=== PATIENT | female | born 1990 | race Hispanic/Latino ===

== ENCOUNTER 2017-05-16 20:32 | Emergency (ER) | payer OTHER ==
[~2017-05-16 20:32] MED LIST: ACET-2247 PO; PREN1TAB26 PO; PREN1TAB80 PO
[2017-05-16] MEDS ORDERED: ONDANSETRON HCL MDV 20ML 2 MG/ML VIAL ONE (21:01)
[2017-05-16] MEDS ORDERED: SODIUM CHLORIDE 0.9% 1000ML 1,000 ML IV ONE (21:02)
[2017-05-16] MEDS ORDERED: KETOROLAC TROMETHAMINE 30MG/ML ONE (21:02)
[2017-05-16 21:04] LABS: BASOPHILS % (AUTO) 0.6 % (0.0-5.0); EOSINOPHILS % (AUTO) 1.2 % (0.0-8.0); HEMATOCRIT 39.9 % (36-48); LYMPHOCYTES % (AUTO) 26.6 % (21.0-51.0); MEAN CORPUSCULAR HEMOGLOBIN 28.4 pg (27.0-33.0); MEAN CORPUSCULAR HGB CONC 33.6 g/dL (32.0-36.0); MEAN CORPUSCULAR VOLUME 84.6 fL (79-99); MONOCYTES % (AUTO) 5.7 % (3.0-13.0); NEUTROPHILS % (AUTO) 65.9 % (40.0-77.0); PLATELET COUNT (AUTO) 324 K/uL (130-400); RED BLOOD CELL COUNT(AUTO) 4.71 MIL/uL (4.00-5.50); RED CELL DISTRIBUTION WIDTH 14.1 % (11.0-15.5); WHITE BLOOD COUNT (AUTO) 9.9 K/uL (4.8-10.8)
[2017-05-16 21:14] LABS: CREATININE 0.9 mg/dL (0.5-1.5); POTASSIUM 3.9 mmol/L (3.5-5.1)
[2017-05-16 21:18] LABS: ALBUMIN 3.5 g/dL (3.5-5.0); BILIRUBIN,TOTAL 0.3 mg/dL (0.2-1.0); TOTAL PROTEIN, SERUM 7.7 g/dL (6.0-8.3)
[2017-05-16 21:53] LABS: APPEARANCE,URINE Clear (CLEAR); BILIRUBIN,URINE Negative (NEGATIVE); COLOR,URINE Yellow (YELLOW); GLUCOSE, URINE (UA) Negative (NEGATIVE); KETONES,URINE Negative (NEGATIVE); LEUKOCYTE ESTERASE ,URINE Trace (NEGATIVE); NITRATE,URINE Negative (NEGATIVE); OCCULT BLOOD,URINE Large (NEGATIVE); PH,URINE 7.5 (5.0-8.0); PROTEIN,URINE Negative (NEGATIVE); UROBILINOGEN,URINE 0.2 mg/dL (0.2-1.0)
[2017-05-16 21:59] LABS: HCG,QUAL RESULT NEGATIVE (NEGATIVE)
[2017-05-16 22:04] LABS: RBC,URINE 0-1 /HPF (0-1)
[2017-05-16 22:06] LABS: BACTERIA,URINE Few /HPF (None Seen); SQUAMOUS EPITHELIAL CELL,UR Rare /HPF (0-2); YEAST,URINE BUDDING Rare /HPF (None Seen)
[2017-05-16] MEDS ORDERED: MORPHINE SULFATE 4 MG/1ML SYG ONE (23:11)
== END 2017-05-17 00:06 | disposition home or self-care (01) ==
LOC: EDH 20:32
DX: N20.0 Calculus of kidney (principal)
CPT/HCPCS: 36415; 71045; 74176; 80053; 81001; 81025; 84484; 85025; 93005; 96361; 96374; 96375; 99285; J1885; J2270; J7030

== ENCOUNTER 2017-08-11 13:25 | Emergency (ER) | payer OTHER | END 2017-08-11 13:31 | disposition home or self-care (01) | LOC: EDH 13:25 | DX: O92.79 Other disorders of lactation (principal) | CPT/HCPCS: 99281 ==

== ENCOUNTER 2018-07-03 11:22 | Emergency (ER) | payer OTHER | END 2018-07-03 14:30 | disposition home or self-care (01) | LOC: EDH 11:22 | DX: S13.4XXA Sprain of ligaments of cervical spine, initial encounter (principal); M25.512 Pain in left shoulder; R07.89 Other chest pain; Z87.442 Personal history of urinary calculi; Z72.0 Tobacco use; V59.09XA Driver of pick-up truck or van injured in collision with other motor vehicles in nontraffic accident, initial encounter; Y93.89 Activity, other specified; Y92.89 Other specified places as the place of occurrence of the external cause; Y99.8 Other external cause status | CPT/HCPCS: 70450; 71045; 72125; 73030 ==

== ENCOUNTER 2018-12-11 01:16 | Inpatient (IN) | payer OTHER ==
[~2018-12-11] VITALS: Ht 157.5 cm; Wt 97.1 kg
[2018-12-11] MEDS ORDERED: ONDANSETRON HCL 4 MG/2 ML VIAL ONE ×2 (02:00→08:23)
[2018-12-11 02:01] LABS: BASOPHILS % (AUTO) 0.3 % (0.0-5.0); EOSINOPHILS % (AUTO) 0.6 % (0.0-8.0); HEMATOCRIT 37.1 % (36-48); LYMPHOCYTES % (AUTO) 12.3 % (21.0-51.0); MEAN CORPUSCULAR HEMOGLOBIN 29.2 pg (27.0-33.0); MEAN CORPUSCULAR HGB CONC 33.6 g/dL (32.0-36.0); MEAN CORPUSCULAR VOLUME 86.9 fL (79-99); MONOCYTES % (AUTO) 6.8 % (3.0-13.0); NUCLEATED RED BLOOD CELLS 0.1 % (0.0-0.19); PLATELET COUNT (AUTO) 254 K/uL (130-400); RED BLOOD CELL COUNT(AUTO) 4.26 MIL/uL (4.00-5.50); RED CELL DISTRIBUTION WIDTH 13.7 % (11.0-15.5); WHITE BLOOD COUNT (AUTO) 13.3 K/uL (4.8-10.8)
[2018-12-11] MEDS ORDERED: HYDROMORPHONE 1 MG/1 ML AMP ONE (02:01)
[2018-12-11] MEDS ORDERED: SODIUM CHLORIDE 0.9% 1000ML 1,000 ML IV ONE ×2 (02:02→05:37)
[2018-12-11 02:03] LABS: APPEARANCE,URINE Clear (CLEAR); BILIRUBIN,URINE Negative (NEGATIVE); COLOR,URINE Yellow (YELLOW); GLUCOSE, URINE (UA) Negative (NEGATIVE); KETONES,URINE Trace mg/dL (NEGATIVE); LEUKOCYTE ESTERASE ,URINE Negative (NEGATIVE); NITRATE,URINE Negative (NEGATIVE); OCCULT BLOOD,URINE Moderate (NEGATIVE); PROTEIN,URINE Negative (NEGATIVE)
[2018-12-11 02:05] LABS: HCG,QUAL RESULT NEGATIVE (NEGATIVE)
[2018-12-11 02:07] LABS: CREATININE 1.6 mg/dL (0.5-1.5); POTASSIUM 3.8 mmol/L (3.5-5.1)
[2018-12-11 02:09] LABS: INR 0.93 (0.85-1.15); PARTIAL THROMBOPLASTIN TIME 24.8 SEC (26.3-35.5); PROTHROMBIN TIME 9.8 SEC (9.6-11.6)
[2018-12-11 02:12] LABS: ALBUMIN 3.4 g/dL (3.5-5.0); BILIRUBIN,TOTAL 0.4 mg/dL (0.2-1.0); TOTAL PROTEIN, SERUM 7.5 g/dL (6.0-8.3)
[2018-12-11 02:18] LABS: BACTERIA,URINE None Seen /HPF (None Seen); SQUAMOUS EPITHELIAL CELL,UR Moderate /HPF (0-2); WBC,URINE 0-1 /HPF (0-1)
[2018-12-11] MEDS ORDERED: KETOROLAC TROMETHAMINE 30MG/ML ONE (02:51)
[2018-12-11] MEDS ORDERED: TAMSULOSIN HCL 0.4 MG CAP.ER.24H ONE (04:15)
[2018-12-11] MEDS ORDERED: CEFTRIAXONE SODIUM 1 GM ONE (04:15)
[2018-12-11] MEDS: SODIUM CHLORIDE 0.9% 1000ML 1,000 ML IV SCH ×3 (05:09→21:09)
[2018-12-11] MEDS ORDERED: ONDANSETRON HCL 4 MG/2 ML VIAL IV PRN (05:15)
[2018-12-11] MEDS ORDERED: LACTULOSE 20 GM/30 ML UDCUP PO PRN (05:15)
[2018-12-11] MEDS ORDERED: ACETAMINOPHEN 325 MG TAB PO PRN (05:15)
[2018-12-11] MEDS ORDERED: ENOXAPARIN SODIUM 40 MG/0.4 ML SYRINGE SQ ONE (08:04)
[2018-12-11] MEDS ORDERED: FAMOTIDINE/PF 20 MG/2 ML VIAL IV ONE (08:04)
[2018-12-11] MEDS ORDERED: MORPHINE SULFATE 2 MG/ML 1ML SYG ONE (08:23)
[2018-12-11] MEDS: ENOXAPARIN SODIUM 40 MG/0.4 ML SYRINGE SQ SCH (08:57)
[2018-12-11] MEDS ORDERED: FAMOTIDINE/PF 20 MG/2 ML VIAL IV SCH (09:00)
[2018-12-11 09:22] VITALS: BP 122/62
--- NOTE | 2018-12-11 09:54 | NUR ---
stents x 2 and nep tube placement Addendum: 12/11/18 at 0956 by MARCO HUMPHRIES RN RN Amended: Links added.
[2018-12-11 11:32] VITALS: BP 119/75
[2018-12-11] MEDS: MORPHINE SULFATE 2 MG/ML 1ML SYG IV PRN ×3 (12:04→20:08)
[2018-12-11 16:00] VITALS: BP 129/67
--- NOTE | 2018-12-11 16:10 | NUR ---
PATIENT C/O PAIN MEDICATION NOT WORKING CONTACTED DR HUTCHINSON ORDERED AND ADDITIONAL DOSE OF 2 MG NOW AND CHANGE NEXT DOSE TO MORPHRINE 4 MG IVP Q4 HOURS FOR PAIN SCORE OF 6-10
[2018-12-11] MEDS ORDERED: MORPHINE SULFATE 2 MG/ML 1ML SYG IM PRN (16:15)
[2018-12-11] MEDS ORDERED: MORPHINE SULFATE 2 MG/ML 1ML SYG IVP SCH (16:34)
[2018-12-11] MEDS: ACETAMINOPHEN 325 MG TAB PO PRN (18:03)
[2018-12-11] MEDS: FAMOTIDINE/PF 20 MG/2 ML VIAL IV SCH (20:03)
[2018-12-11 20:08] VITALS: BP 117/77
[2018-12-11] MEDS ORDERED: KETOROLAC TROMETHAMINE 15MG/ML IV SCH (22:55)
[2018-12-12] VITALS (23 sets, daily range): BP systolic 99–131; BP diastolic 60–86
[2018-12-12] MEDS: SODIUM CHLORIDE 0.9% 1000ML 1,000 ML IV SCH ×4 (02:46→20:13)
[2018-12-12] MEDS: ACETAMINOPHEN 325 MG TAB PO PRN (02:49)
[2018-12-12 04:06] LABS: BASOPHILS % (AUTO) 0.6 % (0.0-5.0); EOSINOPHILS % (AUTO) 2.1 % (0.0-8.0); HEMATOCRIT 34.4 % (36-48); MEAN CORPUSCULAR HEMOGLOBIN 29.6 pg (27.0-33.0); MEAN CORPUSCULAR HGB CONC 33.9 g/dL (32.0-36.0); MEAN CORPUSCULAR VOLUME 87.4 fL (79-99); MONOCYTES % (AUTO) 7.5 % (3.0-13.0); NEUTROPHILS % (AUTO) 70.8 % (40.0-77.0); PLATELET COUNT (AUTO) 225 K/uL (130-400); RED BLOOD CELL COUNT(AUTO) 3.94 MIL/uL (4.00-5.50); RED CELL DISTRIBUTION WIDTH 13.9 % (11.0-15.5); WHITE BLOOD COUNT (AUTO) 8.5 K/uL (4.8-10.8)
[2018-12-12 04:17] LABS: CREATININE 1.3 mg/dL (0.5-1.5); POTASSIUM 3.7 mmol/L (3.5-5.1)
[2018-12-12] MEDS: CEFTRIAXONE SODIUM 1 GM IV SCH (05:41)
[2018-12-12] MEDS: MORPHINE SULFATE 2 MG/ML 1ML SYG IV PRN (05:42)
[2018-12-12] MEDS ORDERED: KETOROLAC TROMETHAMINE 15MG/ML IV SCH (09:48)
[2018-12-12] MEDS: ENOXAPARIN SODIUM 40 MG/0.4 ML SYRINGE SQ SCH (10:01)
--- NOTE | 2018-12-12 11:20 | NUR ---
DCP CM met with pt discussed dc plans. Pt is independent prior to admission, lives at home w/parents. Denies any equipments/services. Feels safe to go back home, still drives, parents able to assist with transportation and needs. Pt is a self pay, given [employer] packet. [facility] assisting. DC plan to home once stable. CM to cont to follow up. Addendum: 12/12/18 at 1121 by LANIE TSAI LVN CM Amended: Links added.
[2018-12-12] MEDS: KETOROLAC TROMETHAMINE 15MG/ML IV PRN ×2 (14:34→22:19)
[2018-12-12] MEDS ORDERED: IOHEXOL-350 50ML VIAL IV ONE (15:23)
[2018-12-12] MEDS ORDERED: DEXAMETHASONE SOD PHOSPHATE 10MG/ML 1ML VIAL ONE (16:49)
[2018-12-12] MEDS ORDERED: LIDOCAINE PF 2% 5ML ABBOJECT ONE (16:49)
[2018-12-12] MEDS ORDERED: SUCCINYLCHOLINE 200MG/10ML SYR ONE (16:49)
[2018-12-12] MEDS ORDERED: PROPOFOL 10 MG/ML 20ML VIAL IV ONE (16:50)
[2018-12-12] MEDS ORDERED: ROCURONIUM 10MG/1ML SYR 10 MG/ML ML ONE (16:50)
[2018-12-12] MEDS ORDERED: GLYCOPYRROLATE 1 MG/5 ML SYRINGE ONE (16:50)
[2018-12-12] MEDS ORDERED: NEOSTIGMINE 5MG/5ML SYR IV ONE (16:50)
[2018-12-12] MEDS ORDERED: MIDAZOLAM HCL 1 MG/ML 2ML VIAL ONE (16:50)
[2018-12-12] MEDS ORDERED: ONDANSETRON HCL 4 MG/2 ML VIAL ONE (16:50)
[2018-12-12] MEDS ORDERED: FENTANYL CITRATE PF 50 MCG/1 ML 2ML VIAL ONE ×2 (16:51→18:07)
--- NOTE | 2018-12-12 17:00 | NUR ---
REPORT GIVEN TO PATIENT MOVING AFTER PROCEDURE TO ROOM 407
--- NOTE | 2018-12-12 17:05 | NUR ---
PATIENT LEFT VIA BED TO OR HOLDING
[2018-12-12] MEDS ORDERED: SCOPOLAMINE HYDROBROMIDE 1 EACH ADH..PATCH TD ONE (17:07)
--- NOTE | 2018-12-12 19:50 | NUR ---
RECEIVED FROM PACU. PT AWAKE, ALERT AND RESPONSIVE, NO C/O PAIN OR DISCOMFORT AT THIS TIME. TEGADERM HOLDING STRINGS IN PLACE, OBSERVED TO SUPRAPUBIC AREA, NO BLEEDING NOTED.
[2018-12-12] MEDS: FAMOTIDINE/PF 20 MG/2 ML VIAL IV SCH (20:13)
[2018-12-12] MEDS ORDERED: TEMAZEPAM 7.5 MG CAPSULE PO ONE (23:30)
[2018-12-12] MEDS ORDERED: TEMAZEPAM 15 MG CAPSULE ONE (23:39)
[2018-12-13 00:35] VITALS: BP 112/61
[2018-12-13 03:44] VITALS: BP 92/69
[2018-12-13] MEDS: SODIUM CHLORIDE 0.9% 1000ML 1,000 ML IV SCH ×2 (05:22→13:09)
[2018-12-13] MEDS: CEFTRIAXONE SODIUM 1 GM IV SCH (05:22)
[2018-12-13 05:30] LABS: BASOPHILS % (AUTO) 0.3 % (0.0-5.0); HEMATOCRIT 36.7 % (36-48); MEAN CORPUSCULAR HEMOGLOBIN 29.2 pg (27.0-33.0); MEAN CORPUSCULAR HGB CONC 34.1 g/dL (32.0-36.0); MEAN CORPUSCULAR VOLUME 85.6 fL (79-99); MONOCYTES % (AUTO) 2.4 % (3.0-13.0); NEUTROPHILS % (AUTO) 87.3 % (40.0-77.0); PLATELET COUNT (AUTO) 297 K/uL (130-400); RED BLOOD CELL COUNT(AUTO) 4.29 MIL/uL (4.00-5.50); RED CELL DISTRIBUTION WIDTH 13.6 % (11.0-15.5); WHITE BLOOD COUNT (AUTO) 8.5 K/uL (4.8-10.8)
[2018-12-13 05:31] LABS: CREATININE 1.4 mg/dL (0.5-1.5); POTASSIUM 4.4 mmol/L (3.5-5.1)
[2018-12-13 05:32] VITALS: BP 101/69
[2018-12-13 08:34] VITALS: BP 103/74
[2018-12-13 11:05] VITALS: BP 97/48
== END 2018-12-13 14:01 | disposition home or self-care (01) | DRG 660 ==
LOC: EDH 01:16 → EDHIP 01:17 → OBSVTOIN 01:17 → UNDOADMOB 04:24 → EDHIP 04:24 → 4DH 08:50 → 4BH 12-12 17:04
PROVIDERS: ADMIT Internal Medicine; ATTEND Internal Medicine
PROC: 0T778DZ Dilation of Left Ureter with Intraluminal Device, Via Natural or Artificial Opening Endoscopic (ICD-10-PCS; principal; 2018-12-12 18:04)
PROC: 0TF78ZZ Fragmentation in Left Ureter, Via Natural or Artificial Opening Endoscopic (ICD-10-PCS; 2018-12-12 18:04)
DX: N13.6 Pyonephrosis (principal); E44.0 Moderate protein-calorie malnutrition; E66.9 Obesity, unspecified; Z87.442 Personal history of urinary calculi; Z82.49 Family history of ischemic heart disease and other diseases of the circulatory system; Z82.5 Family history of asthma and other chronic lower respiratory diseases; Z82.0 Family history of epilepsy and other diseases of the nervous system; Z83.3 Family history of diabetes mellitus; Z82.3 Family history of stroke; Z93.6 Other artificial openings of urinary tract status; Z68.39 Body mass index [BMI] 39.0-39.9, adult
CPT/HCPCS: 36415; 74018; 74176; 77002; 80048; 80053; 81001; 81025; 82150; 82550; 83690; 84484; 85025; 85610; 85730; 87088; 93005; A4354; C1758; C1769; C1894; C2617; G0378; J0330; J0696; J1100; J1170; J1650; J1885; J2001; J2250; J2405; J2704; J2710; J3010; J3490; J7030; J7120; Q9967

== ENCOUNTER 2018-12-18 15:34 | Emergency (ER) | payer SELFPAY ==
[~2018-12-18 15:34] MED LIST changes: -PREN1TAB26 PO; -PREN1TAB80 PO
[2018-12-18 16:24] LABS: APPEARANCE,URINE CLOUDY (CLEAR); BILIRUBIN,URINE SMALL (NEGATIVE); COLOR,URINE ORANGE (YELLOW); GLUCOSE, URINE (UA) 100 mg/dL (NEGATIVE); KETONES,URINE NEGATIVE (NEGATIVE); LEUKOCYTE ESTERASE ,URINE SMALL (NEGATIVE); NITRATE,URINE POSITIVE (NEGATIVE); OCCULT BLOOD,URINE LARGE (NEGATIVE); PH,URINE 5.5 (5.0-8.0); PROTEIN,URINE >=300 mg/dL (NEGATIVE)
[2018-12-18 16:46] LABS: HCG,QUAL RESULT NEGATIVE (NEGATIVE)
[2018-12-18 16:54] LABS: RBC,URINE 26-50 /HPF (0-1)
[2018-12-18 17:00] LABS: BACTERIA,URINE Rare /HPF (None Seen); SQUAMOUS EPITHELIAL CELL,UR Few /HPF (0-2)
== END 2018-12-18 16:56 | disposition home or self-care (01) ==
LOC: EDH 15:34
DX: N39.0 Urinary tract infection, site not specified (principal); Z87.442 Personal history of urinary calculi
CPT/HCPCS: 81001; 81025; 87088

== ENCOUNTER 2019-06-28 22:17 | Emergency (ER) | payer OTHER ==
[2019-06-28] MEDS ORDERED: ONDANSETRON HCL 4 MG/2 ML VIAL IVP ONE (22:18)
[2019-06-28] MEDS ORDERED: SODIUM CHLORIDE IRRIG SOLUTION 1,000 ML IR ONE (22:18)
[2019-06-28 22:49] LABS: BASOPHILS % (AUTO) 0.5 % (0.0-5.0); EOSINOPHILS % (AUTO) 1.3 % (0.0-8.0); HEMATOCRIT 40.8 % (36-48); LYMPHOCYTES % (AUTO) 22.9 % (21.0-51.0); MEAN CORPUSCULAR HEMOGLOBIN 28.5 pg (27.0-33.0); MEAN CORPUSCULAR HGB CONC 33.3 g/dL (32.0-36.0); MEAN CORPUSCULAR VOLUME 85.4 fL (79-99); MONOCYTES % (AUTO) 3.8 % (3.0-13.0); NEUTROPHILS % (AUTO) 71.1 % (40.0-77.0); PLATELET COUNT (AUTO) 307 K/uL (130-400); RED BLOOD CELL COUNT(AUTO) 4.78 MIL/uL (4.00-5.50); RED CELL DISTRIBUTION WIDTH 13.9 % (11.0-15.5); WHITE BLOOD COUNT (AUTO) 11.7 K/uL (4.8-10.8)
[2019-06-28 22:55] LABS: APPEARANCE,URINE Clear (CLEAR); BILIRUBIN,URINE Negative (NEGATIVE); COLOR,URINE Yellow (YELLOW); GLUCOSE, URINE (UA) Negative (NEGATIVE); KETONES,URINE Negative (NEGATIVE); LEUKOCYTE ESTERASE ,URINE Trace (NEGATIVE); NITRATE,URINE Negative (NEGATIVE); OCCULT BLOOD,URINE Small (NEGATIVE); PH,URINE 6.5 (5.0-8.0); PROTEIN,URINE Negative (NEGATIVE)
[2019-06-28 22:58] LABS: HCG,QUAL RESULT NEGATIVE (NEGATIVE)
[2019-06-28 23:01] LABS: CREATININE 1.1 mg/dL (0.5-1.5); POTASSIUM 3.7 mmol/L (3.5-5.1)
[2019-06-28] MEDS ORDERED: KETOROLAC TROMETHAMINE 30MG/ML ONE (23:04)
[2019-06-28 23:06] LABS: ALBUMIN 3.5 g/dL (3.5-5.0); BACTERIA,URINE None Seen /HPF (None Seen); BILIRUBIN,TOTAL 0.2 mg/dL (0.2-1.0); RBC,URINE 0-1 /HPF (0-1); SQUAMOUS EPITHELIAL CELL,UR Rare /HPF (0-2); TOTAL PROTEIN, SERUM 7.4 g/dL (6.0-8.3); WBC,URINE 0-1 /HPF (0-1)
== END 2019-06-29 00:20 | disposition home or self-care (01) ==
LOC: EDH 22:17
DX: M54.5 Low back pain (principal); R10.31 Right lower quadrant pain; R11.0 Nausea; Z87.442 Personal history of urinary calculi
CPT/HCPCS: 36415; 74176; 80053; 81001; 81025; 83690; 85025; 96374; 96375; 99284; J1885; J2405

== ENCOUNTER 2019-08-09 16:09 | Emergency (ER) | payer OTHER ==
[2019-08-09 17:20] LABS: BASOPHILS % (AUTO) 0.4 % (0.0-5.0); EOSINOPHILS % (AUTO) 1.4 % (0.0-8.0); HEMATOCRIT 39.5 % (36-48); LYMPHOCYTES % (AUTO) 21.8 % (21.0-51.0); MEAN CORPUSCULAR HGB CONC 32.7 g/dL (32.0-36.0); MEAN CORPUSCULAR VOLUME 85.9 fL (79-99); MONOCYTES % (AUTO) 5.3 % (3.0-13.0); NEUTROPHILS % (AUTO) 70.5 % (40.0-77.0); PLATELET COUNT (AUTO) 283 K/uL (130-400); RED CELL DISTRIBUTION WIDTH 13.8 % (11.0-15.5); WHITE BLOOD COUNT (AUTO) 10.8 K/uL (4.8-10.8)
[2019-08-09 17:26] LABS: APPEARANCE,URINE Clear (CLEAR); BILIRUBIN,URINE Negative (NEGATIVE); COLOR,URINE Yellow (YELLOW); GLUCOSE, URINE (UA) Negative (NEGATIVE); KETONES,URINE Negative (NEGATIVE); LEUKOCYTE ESTERASE ,URINE Small (NEGATIVE); NITRATE,URINE Negative (NEGATIVE); OCCULT BLOOD,URINE Small (NEGATIVE); PROTEIN,URINE Negative (NEGATIVE)
[2019-08-09 17:27] LABS: CREATININE 0.8 mg/dL (0.5-1.5); POTASSIUM 3.7 mmol/L (3.5-5.1)
[2019-08-09 17:31] LABS: INR 0.87 (0.85-1.15); PARTIAL THROMBOPLASTIN TIME 24.5 SEC (26.3-35.5); PROTHROMBIN TIME 9.4 SEC (9.6-11.6)
[2019-08-09 17:37] LABS: ALBUMIN 3.4 g/dL (3.5-5.0); BILIRUBIN,TOTAL 0.3 mg/dL (0.2-1.0); TOTAL PROTEIN, SERUM 7.1 g/dL (6.0-8.3)
[2019-08-09 18:03] LABS: BACTERIA,URINE Rare /HPF (None Seen)
[2019-08-09 18:04] LABS: MUCUS,URINE Few LPF (None Seen); SQUAMOUS EPITHELIAL CELL,UR Few /HPF (0-2)
== END 2019-08-09 19:53 | disposition home or self-care (01) ==
LOC: EDH 16:09
DX: O20.0 Threatened abortion (principal); O23.41 Unspecified infection of urinary tract in pregnancy, first trimester; Z3A.01 Less than 8 weeks gestation of pregnancy
CPT/HCPCS: 36415; 76801; 80053; 81001; 84702; 85025; 85610; 85730; 86900; 86901; 87088

== ENCOUNTER 2019-08-23 03:15 | Emergency (ER) | payer OTHER | END 2019-08-23 06:45 | disposition home or self-care (01) | LOC: EDH 03:15 | DX: O20.0 Threatened abortion (principal); Z3A.12 12 weeks gestation of pregnancy ==

== ENCOUNTER 2019-09-04 01:45 | Emergency (ER) | payer OTHER ==
[2019-09-04] MEDS ORDERED: TAMSULOSIN HCL 0.4 MG CAP.ER.24H ONE (02:06)
[2019-09-04] MEDS ORDERED: KETOROLAC TROMETHAMINE 30MG/ML ONE (02:06)
[2019-09-04] MEDS ORDERED: ONDANSETRON HCL 4 MG/2 ML VIAL ONE (02:06)
[2019-09-04] MEDS ORDERED: METOCLOPRAMIDE 10 MG/2 ML VIAL ONE (02:06)
[2019-09-04] MEDS ORDERED: SODIUM CHLORIDE 0.9% 1000ML 2,000 ML IV ONE (02:10)
[2019-09-04 02:17] LABS: BASOPHILS % (AUTO) 0.6 % (0.0-5.0); HEMATOCRIT 35.8 % (36-48); LYMPHOCYTES % (AUTO) 32.5 % (21.0-51.0); MEAN CORPUSCULAR HEMOGLOBIN 28.3 pg (27.0-33.0); MEAN CORPUSCULAR HGB CONC 33.5 g/dL (32.0-36.0); MEAN CORPUSCULAR VOLUME 84.4 fL (79-99); MONOCYTES % (AUTO) 5.7 % (3.0-13.0); NEUTROPHILS % (AUTO) 58.9 % (40.0-77.0); PLATELET COUNT (AUTO) 308 K/uL (130-400); RED BLOOD CELL COUNT(AUTO) 4.24 MIL/uL (4.00-5.50); RED CELL DISTRIBUTION WIDTH 13.9 % (11.0-15.5); WHITE BLOOD COUNT (AUTO) 8.8 K/uL (4.8-10.8)
[2019-09-04 02:21] LABS: CREATININE 1.2 mg/dL (0.5-1.5); POTASSIUM 3.4 mmol/L (3.5-5.1)
[2019-09-04 02:24] LABS: INR 0.9 (0.85-1.15); PARTIAL THROMBOPLASTIN TIME 25.8 SEC (26.3-35.5); PROTHROMBIN TIME 9.8 SEC (9.6-11.6)
[2019-09-04 02:25] LABS: ALBUMIN 3.4 g/dL (3.5-5.0); BILIRUBIN,TOTAL 0.2 mg/dL (0.2-1.0); TOTAL PROTEIN, SERUM 7.2 g/dL (6.0-8.3)
== END 2019-09-04 03:40 | disposition left against medical advice (07) ==
LOC: EDH 01:45
DX: M54.5 Low back pain (principal); R11.2 Nausea with vomiting, unspecified; R79.1 Abnormal coagulation profile
CPT/HCPCS: 36415; 80053; 83690; 85025; 85610; 85730; 96361; 96374; 96375; 99284; J1885; J2405; J2765; J7030

== ENCOUNTER 2020-03-23 21:35 | Emergency (ER) | payer MEDICAID, OTHER ==
[2020-03-23] MEDS ORDERED: ONDANSETRON HCL 4 MG/2 ML VIAL ONE (21:55)
[2020-03-23] MEDS ORDERED: KETOROLAC TROMETHAMINE 30MG/ML ONE (21:55)
[2020-03-23] MEDS ORDERED: SODIUM CHLORIDE 0.9% 1000ML 1,000 ML IV ONE (21:56)
[2020-03-23 22:10] LABS: BASOPHILS % (AUTO) 0.4 % (0.0-5.0); LYMPHOCYTES % (AUTO) 27.9 % (21.0-51.0); MEAN CORPUSCULAR HEMOGLOBIN 28.3 pg (27.0-33.0); MEAN CORPUSCULAR HGB CONC 31.9 g/dL (32.0-36.0); MEAN CORPUSCULAR VOLUME 88.8 fL (79-99); MONOCYTES % (AUTO) 5.3 % (3.0-13.0); PLATELET COUNT (AUTO) 330 K/uL (130-400); RED BLOOD CELL COUNT(AUTO) 4.84 MIL/uL (4.00-5.50); RED CELL DISTRIBUTION WIDTH 13.4 % (11.0-15.5); WHITE BLOOD COUNT (AUTO) 13.1 K/uL (4.8-10.8)
[2020-03-23 22:20] LABS: APPEARANCE,URINE Cloudy (CLEAR); BILIRUBIN,URINE Negative (NEGATIVE); COLOR,URINE Yellow (YELLOW); GLUCOSE, URINE (UA) Negative (NEGATIVE); KETONES,URINE Trace mg/dL (NEGATIVE); LEUKOCYTE ESTERASE ,URINE Small (NEGATIVE); NITRATE,URINE Negative (NEGATIVE); OCCULT BLOOD,URINE Small (NEGATIVE); PH,URINE 6.5 (5.0-8.0); PROTEIN,URINE Negative (NEGATIVE)
[2020-03-23 22:21] LABS: CREATININE 0.9 mg/dL (0.5-1.5); POTASSIUM 3.2 mmol/L (3.5-5.1)
[2020-03-23 22:25] LABS: HCG,QUAL RESULT NEGATIVE (NEGATIVE)
[2020-03-23 22:26] LABS: ALBUMIN 3.7 g/dL (3.5-5.0); BILIRUBIN,TOTAL 0.5 mg/dL (0.2-1.0); TOTAL PROTEIN, SERUM 7.8 g/dL (6.0-8.3)
[2020-03-23 22:35] LABS: BACTERIA,URINE Rare /HPF (None Seen); RBC,URINE 0-1 /HPF (0-1); SQUAMOUS EPITHELIAL CELL,UR Moderate /HPF (0-2); WBC,URINE 0-1 /HPF (0-1)
[2020-03-23] MEDS ORDERED: POTASSIUM BICARB/CIT AC 25 MEQ TABLET.EFF ONE (22:48)
== END 2020-03-23 23:23 | disposition home or self-care (01) ==
LOC: EDH 21:35
DX: N20.0 Calculus of kidney (principal); R10.11 Right upper quadrant pain
CPT/HCPCS: 36415; 74176; 80053; 81001; 81025; 83690; 85025; 96361; 96374; 96375; 99284; J1885; J2405; J7030

== ENCOUNTER 2020-07-17 09:39 | Emergency (ER) | payer MEDICAID ==
[2020-07-17 10:09] LABS: BASOPHILS % (AUTO) 0.4 % (0.0-5.0); EOSINOPHILS % (AUTO) 1.3 % (0.0-8.0); HEMATOCRIT 39.3 % (36-48); LYMPHOCYTES % (AUTO) 29.1 % (21.0-51.0); MEAN CORPUSCULAR HEMOGLOBIN 28.5 pg (27.0-33.0); MEAN CORPUSCULAR HGB CONC 32.8 g/dL (32.0-36.0); MEAN CORPUSCULAR VOLUME 86.8 fL (79-99); MONOCYTES % (AUTO) 4.9 % (3.0-13.0); NEUTROPHILS % (AUTO) 63.8 % (40.0-77.0); PLATELET COUNT (AUTO) 311 K/uL (130-400); RED BLOOD CELL COUNT(AUTO) 4.53 MIL/uL (4.00-5.50); WHITE BLOOD COUNT (AUTO) 11.6 K/uL (4.8-10.8)
[2020-07-17 10:30] LABS: ALBUMIN 3.6 g/dL (3.5-5.0); BILIRUBIN,TOTAL 0.2 mg/dL (0.2-1.0); CREATININE 0.7 mg/dL (0.5-1.5); POTASSIUM 3.8 mmol/L (3.5-5.1); TOTAL PROTEIN, SERUM 7.1 g/dL (6.0-8.3)
[2020-07-17] MEDS ORDERED: KETOROLAC TROMETHAMINE 30MG/ML ONE (11:10)
[2020-07-17] MEDS ORDERED: ORPHENADRINE CITRATE 30 MG/ML ML ONE (11:22)
== END 2020-07-17 13:45 | disposition home or self-care (01) ==
LOC: EDH 09:39
DX: M94.0 Chondrocostal junction syndrome [Tietze] (principal); R20.2 Paresthesia of skin; Z72.0 Tobacco use; Z87.442 Personal history of urinary calculi
CPT/HCPCS: 36415; 71046; 80053; 82550; 84484 ×2; 85025; 93005 ×2; 96374; 96375; 99285; J1885; J2360

== ENCOUNTER 2020-09-17 16:15 | Emergency (ER) | payer MEDICAID ==
[~2020-09-17] VITALS: Ht 157.5 cm; Wt 114.3 kg
[2020-09-17 16:17] VITALS: BP 122/73
[2020-09-17 17:17] VITALS: BP 135/70
[2020-09-17 17:27] LABS: BASOPHILS % (AUTO) 0.4 % (0.0-5.0); EOSINOPHILS % (AUTO) 1.2 % (0.0-8.0); HEMATOCRIT 39.2 % (36-48); LYMPHOCYTES % (AUTO) 24.2 % (21.0-51.0); MEAN CORPUSCULAR HEMOGLOBIN 28.5 pg (27.0-33.0); MEAN CORPUSCULAR HGB CONC 32.9 g/dL (32.0-36.0); MEAN CORPUSCULAR VOLUME 86.7 fL (79-99); MONOCYTES % (AUTO) 5.6 % (3.0-13.0); NEUTROPHILS % (AUTO) 68.1 % (40.0-77.0); PLATELET COUNT (AUTO) 297 K/uL (130-400); RED BLOOD CELL COUNT(AUTO) 4.52 MIL/uL (4.00-5.50); WHITE BLOOD COUNT (AUTO) 11.8 K/uL (4.8-10.8)
[2020-09-17 17:37] LABS: CREATININE 0.8 mg/dL (0.5-1.5); POTASSIUM 4.1 mmol/L (3.5-5.1)
[2020-09-17 17:42] LABS: ALBUMIN 3.4 g/dL (3.5-5.0); BILIRUBIN,TOTAL 0.3 mg/dL (0.2-1.0); TOTAL PROTEIN, SERUM 7.2 g/dL (6.0-8.3)
[2020-09-17 17:53] LABS: APPEARANCE,URINE Clear (CLEAR); BILIRUBIN,URINE Negative (NEGATIVE); COLOR,URINE Yellow (YELLOW); GLUCOSE, URINE (UA) Negative (NEGATIVE); KETONES,URINE Negative (NEGATIVE); LEUKOCYTE ESTERASE ,URINE Trace (NEGATIVE); NITRATE,URINE Negative (NEGATIVE); OCCULT BLOOD,URINE Small (NEGATIVE); PROTEIN,URINE Negative (NEGATIVE)
[2020-09-17 17:55] LABS: HCG,QUAL RESULT NEGATIVE (NEGATIVE)
[2020-09-17 18:01] LABS: BACTERIA,URINE Few /HPF (None Seen); MUCUS,URINE Few LPF (None Seen); SQUAMOUS EPITHELIAL CELL,UR 0-2 /HPF (0-2); WBC,URINE 0-1 /HPF (0-1)
[2020-09-17 18:19] VITALS: BP 127/78
[2020-09-17] MEDS ORDERED: MORPHINE 4 MG SYG IV ONE (18:30)
[2020-09-17] MEDS ORDERED: PROMETHAZINE HCL 25 MG/ML 1ML AMPULE IM ONE (18:30)
[2020-09-17] MEDS ORDERED: IOHEXOL 350 MG/ML 100ML INFUS..BTL IV ONE (19:15)
[2020-09-17] MEDS ORDERED: MORPHINE 4 MG SYG ONE (19:45)
[2020-09-17 19:55] VITALS: BP 112/78
[2020-09-17] MEDS ORDERED: DICY20TA2 PO (20:06)
== END 2020-09-17 20:18 | disposition home or self-care (01) ==
LOC: EDH 16:15
DX: R10.30 Lower abdominal pain, unspecified (principal); R11.0 Nausea; Z98.890 Other specified postprocedural states
CPT/HCPCS: 36415; 74177; 80053; 81001; 81025; 83690; 85025; 96374; 99285; J2270; Q9967

== ENCOUNTER 2020-12-26 10:09 | Emergency (ER) | payer MEDICAID ==
[~2020-12-26] VITALS: Ht 157.5 cm; Wt 112.5 kg
[~2020-12-26 10:09] MED LIST changes: +DICY20TA2 PO
[2020-12-26] MEDS ORDERED: LIDOCAINE 1%-EPI 1:100,000 20 ML VIAL IJ SCH (10:30)
[2020-12-26] MEDS ORDERED: ONDANSETRON 4MG INJ IVP ONE (10:30)
[2020-12-26] MEDS ORDERED: MORPHINE 4 MG SYG IV ONE (10:30)
[2020-12-26] MEDS ORDERED: LIDOCAINE HCL 2% JELLY 5 ML TP SCH (10:30)
[2020-12-26 10:32] LABS: BASOPHILS % (AUTO) 0.6 % (0.0-5.0); EOSINOPHILS % (AUTO) 1.8 % (0.0-8.0); HEMATOCRIT 39.5 % (36-48); LYMPHOCYTES % (AUTO) 35.7 % (21.0-51.0); MEAN CORPUSCULAR HEMOGLOBIN 28.5 pg (27.0-33.0); MEAN CORPUSCULAR HGB CONC 32.7 g/dL (32.0-36.0); MEAN CORPUSCULAR VOLUME 87.4 fL (79-99); MONOCYTES % (AUTO) 5.5 % (3.0-13.0); PLATELET COUNT (AUTO) 303 K/uL (130-400); RED BLOOD CELL COUNT(AUTO) 4.52 MIL/uL (4.00-5.50); RED CELL DISTRIBUTION WIDTH 14.3 % (11.0-15.5); WHITE BLOOD COUNT (AUTO) 10.7 K/uL (4.8-10.8)
[2020-12-26 10:41] LABS: CREATININE 0.8 mg/dL (0.5-1.5); POTASSIUM 3.4 mmol/L (3.5-5.1)
[2020-12-26 10:46] LABS: ALBUMIN 3.7 g/dL (3.5-5.0); BILIRUBIN,TOTAL 0.3 mg/dL (0.2-1.0); TOTAL PROTEIN, SERUM 7.8 g/dL (6.0-8.3)
[2020-12-26 12:06] VITALS: BP 106/56
== END 2020-12-26 12:21 | disposition home or self-care (01) ==
LOC: EDH 10:09
DX: S10.11XA Abrasion of throat, initial encounter (principal); Z87.442 Personal history of urinary calculi; Z79.899 Other long term (current) drug therapy; X58.XXXA Exposure to other specified factors, initial encounter; Y93.89 Activity, other specified; Y92.89 Other specified places as the place of occurrence of the external cause; Y99.8 Other external cause status
CPT/HCPCS: 36415; 70360; 71045; 80053; 85025

== ENCOUNTER 2021-03-29 04:33 | Emergency (ER) | payer MEDICAID ==
[~2021-03-29] VITALS: Ht 157.5 cm; Wt 108.0 kg
[2021-03-29] MEDS ORDERED: METOCLOPRAMIDE 10 MG/2 ML VIAL IVP ONE (05:30)
[2021-03-29] MEDS ORDERED: ONDANSETRON 4MG INJ IVP ONE (05:30)
[2021-03-29] MEDS ORDERED: FAMOTIDINE 20MG VIAL IV ONE (05:30)
[2021-03-29] MEDS ORDERED: 0.9%NACL 1000ML 1,000 ML IV ONE (05:30)
[2021-03-29] MEDS ORDERED: PANTOPRAZOLE 40 MG/VIAL IVP ONE (05:30)
[2021-03-29] MEDS ORDERED: KETOROLAC 30MG VIAL (30MG/ML) IV ONE (05:30)
[2021-03-29 05:50] LABS: BASOPHILS % (AUTO) 0.6 % (0.0-5.0); EOSINOPHILS % (AUTO) 2.7 % (0.0-8.0); HEMATOCRIT 40.4 % (36-48); LYMPHOCYTES % (AUTO) 41.6 % (21.0-51.0); MEAN CORPUSCULAR HEMOGLOBIN 27.3 pg (27.0-33.0); MEAN CORPUSCULAR HGB CONC 31.9 g/dL (32.0-36.0); MEAN CORPUSCULAR VOLUME 85.4 fL (79-99); MONOCYTES % (AUTO) 5.4 % (3.0-13.0); NEUTROPHILS % (AUTO) 49.4 % (40.0-77.0); PLATELET COUNT (AUTO) 249 K/uL (130-400); RED BLOOD CELL COUNT(AUTO) 4.73 MIL/uL (4.00-5.50); RED CELL DISTRIBUTION WIDTH 13.7 % (11.0-15.5); WHITE BLOOD COUNT (AUTO) 7.1 K/uL (4.8-10.8)
[2021-03-29 05:59] LABS: APPEARANCE,URINE Clear (CLEAR); BILIRUBIN,URINE Negative (NEGATIVE); COLOR,URINE Yellow (YELLOW); GLUCOSE, URINE (UA) Negative (NEGATIVE); KETONES,URINE Negative (NEGATIVE); LEUKOCYTE ESTERASE ,URINE Trace (NEGATIVE); NITRATE,URINE Negative (NEGATIVE); OCCULT BLOOD,URINE Moderate (NEGATIVE); PROTEIN,URINE Negative (NEGATIVE); UROBILINOGEN,URINE 0.2 mg/dL (0.2-1.0)
[2021-03-29 06:00] LABS: ALBUMIN 3.6 g/dL (3.5-5.0); BILIRUBIN,TOTAL 0.1 mg/dL (0.2-1.0); CREATININE 0.9 mg/dL (0.5-1.5); POTASSIUM 3.7 mmol/L (3.5-5.1); TOTAL PROTEIN, SERUM 7.4 g/dL (6.0-8.3)
[2021-03-29 06:05] LABS: HCG,QUAL RESULT NEGATIVE (NEGATIVE)
[2021-03-29 06:27] LABS: BACTERIA,URINE None Seen /HPF (None Seen)
[2021-03-29 06:28] LABS: SQUAMOUS EPITHELIAL CELL,UR Few /HPF (0-2)
[2021-03-29 08:00] VITALS: BP 110/74
[2021-03-29] MEDS ORDERED: MELO7.5T12 PO (08:19)
[2021-03-29] MEDS ORDERED: CYCL-309 PO (08:19)
[2021-03-29] MEDS ORDERED: ONDA4TAB10 PO (08:19)
[2021-03-29] MEDS ORDERED: ORPHENADRINE CITRATE 30 MG/ML ML ONE (08:26)
[2021-03-29] MEDS ORDERED: ORPHENADRINE CITRATE 30 MG/ML ML IV ONE (08:30)
== END 2021-03-29 08:52 | disposition home or self-care (01) ==
LOC: EDH 04:33
DX: E86.9 Volume depletion, unspecified (principal); M62.838 Other muscle spasm; M54.9 Dorsalgia, unspecified; R07.89 Other chest pain; F17.200 Nicotine dependence, unspecified, uncomplicated; Z79.1 Long term (current) use of non-steroidal anti-inflammatories (NSAID)
CPT/HCPCS: 36415; 71045; 74176; 80053; 81001; 81025; 83690; 84484; 85025; 93005; 96361; 96374; 96375; 99285; J1885; J2360; J2405; J2765; J7030; S0028; S0164; C9113; J3490

== ENCOUNTER 2021-07-15 07:19 | Inpatient (IN) | payer MEDICAID ==
[~2021-07-15] VITALS: Ht 160 cm; Wt 108.6 kg
[~2021-07-15 07:19] MED LIST changes: +CYCL-309 PO; +MELO7.5T12 PO; +ONDA4TAB10 PO
[2021-07-15 07:48] LABS: BASOPHILS % (AUTO) 0.5 % (0.0-5.0); EOSINOPHILS % (AUTO) 1.5 % (0.0-8.0); HEMATOCRIT 40.8 % (36-48); LYMPHOCYTES % (AUTO) 35.4 % (21.0-51.0); MEAN CORPUSCULAR HGB CONC 32.6 g/dL (32.0-36.0); MEAN CORPUSCULAR VOLUME 85.9 fL (79-99); MONOCYTES % (AUTO) 5.8 % (3.0-13.0); NEUTROPHILS % (AUTO) 56.4 % (40.0-77.0); PLATELET COUNT (AUTO) 315 K/uL (130-400); RED BLOOD CELL COUNT(AUTO) 4.75 MIL/uL (4.00-5.50); RED CELL DISTRIBUTION WIDTH 13.6 % (11.0-15.5); WHITE BLOOD COUNT (AUTO) 12.4 K/uL (4.8-10.8)
[2021-07-15] MEDS ORDERED: KETOROLAC 15MG/ML VIAL (15MG/ML) IV SCH (08:00)
[2021-07-15] MEDS ORDERED: ONDANSETRON 4MG INJ IVP SCH (08:00)
[2021-07-15] MEDS ORDERED: MORPHINE 2 MG SYG IVP SCH (08:00)
[2021-07-15 08:04] LABS: ALBUMIN 3.8 g/dL (3.5-5.0); BILIRUBIN,TOTAL 0.2 mg/dL (0.2-1.0); CREATININE 1.2 mg/dL (0.5-1.5); POTASSIUM 3.4 mmol/L (3.5-5.1); TOTAL PROTEIN, SERUM 7.5 g/dL (6.0-8.3)
[2021-07-15] MEDS ORDERED: 0.9%NACL 1000ML 1,000 ML IV SCH (08:30)
[2021-07-15 10:03] LABS: APPEARANCE,URINE Cloudy (CLEAR); BILIRUBIN,URINE Negative (NEGATIVE); COLOR,URINE Yellow (YELLOW); GLUCOSE, URINE (UA) Negative (NEGATIVE); KETONES,URINE Negative (NEGATIVE); LEUKOCYTE ESTERASE ,URINE Moderate (NEGATIVE); NITRATE,URINE Negative (NEGATIVE); OCCULT BLOOD,URINE Nonhemolyzed Trace (NEGATIVE); PH,URINE 5.5 (5.0-8.0); PROTEIN,URINE Trace mg/dL (NEGATIVE); UROBILINOGEN,URINE 0.2 mg/dL (0.2-1.0)
[2021-07-15] MEDS ORDERED: KETOROLAC 30MG VIAL (30MG/ML) ONE (10:16)
[2021-07-15 10:19] LABS: HCG,QUAL RESULT NEGATIVE (NEGATIVE)
[2021-07-15 10:32] LABS: SQUAMOUS EPITHELIAL CELL,UR Moderate /HPF (0-2); WBC,URINE 26-50 /HPF (0-1)
[2021-07-15 10:33] LABS: BACTERIA,URINE Moderate /HPF (None Seen)
[2021-07-15] MEDS ORDERED: MORPHINE 4 MG SYG IVP ONE (11:00)
[2021-07-15] MEDS ORDERED: CEFTRIAXONE 1G VIAL IVP ONE (11:00)
[2021-07-15] MEDS: CEFTRIAXONE 1G VIAL IV SCH (12:30)
[2021-07-15] MEDS ORDERED: ACETAMINOPHEN 325 MG TAB PO PRN ×2 (12:30)
[2021-07-15] MEDS ORDERED: LACTULOSE 20 GM/30 ML UDCUP PO PRN (12:30)
[2021-07-15] MEDS ORDERED: MORPHINE 2 MG SYG IV PRN (12:30)
[2021-07-15] MEDS ORDERED: ONDANSETRON 4MG INJ IV PRN (12:30)
[2021-07-15 12:54] LABS: MAGNESIUM 2.1 mg/dL (1.80-2.40)
[2021-07-15] MEDS: 0.9%NACL 1000ML 1,000 ML IV SCH ×2 (12:58→23:43)
[2021-07-15] MEDS ORDERED: KETOROLAC 30MG VIAL (30MG/ML) IVP PRN (13:00)
[2021-07-15 18:00] VITALS: BP 103/66
[2021-07-15 20:02] VITALS: BP 112/67
[2021-07-15] MEDS: MORPHINE 4 MG SYG IV PRN (20:13)
[2021-07-15] MEDS: FAMOTIDINE 20MG VIAL IV SCH (20:13)
[2021-07-15 23:44] VITALS: BP 103/76
[2021-07-16] VITALS (21 sets, daily range): BP systolic 88–119; BP diastolic 48–77
[2021-07-16] MEDS: MORPHINE 4 MG SYG IV PRN (04:08)
[2021-07-16] MEDS ORDERED: DEXAMETHASONE SOD PHOSPHATE 10MG/ML 1ML VIAL ONE (08:29)
[2021-07-16] MEDS ORDERED: NEOSTIGMINE 5MG/5ML SYR IV ONE (08:29)
[2021-07-16] MEDS ORDERED: LIDOCAINE PF 100MG/5ML (2%) SYRINGE 5ML ONE ×2 (08:29→08:30)
[2021-07-16] MEDS ORDERED: GLYCOPYRROLATE 1 MG/5 ML SYRINGE ONE (08:29)
[2021-07-16] MEDS ORDERED: PROPOFOL 10 MG/ML 20ML VIAL IV ONE (08:29)
[2021-07-16] MEDS ORDERED: SUCCINYLCHOLINE 200MG/10ML SYR ONE ×2 (08:29→08:30)
[2021-07-16] MEDS ORDERED: MIDAZOLAM HCL 1 MG/ML 2ML VIAL ONE (08:29)
[2021-07-16] MEDS: 0.9%NACL 1000ML 1,000 ML IV SCH ×3 (08:30→12:08)
[2021-07-16] MEDS ORDERED: ROCURONIUM 10MG/1ML SYR 10 MG/ML ML ONE (08:30)
[2021-07-16] MEDS ORDERED: ONDANSETRON 4MG INJ ONE (08:30)
[2021-07-16] MEDS ORDERED: FENTANYL CITRATE PF 50 MCG/1 ML 2ML VIAL ONE (08:30)
[2021-07-16] MEDS: FAMOTIDINE 20MG VIAL IV SCH ×2 (09:00→21:21)
[2021-07-16] MEDS: CEFTRIAXONE 1G VIAL IV SCH (12:07)
[2021-07-16] MEDS: HYDROCODONE/ACETAMINOPHEN 10/325 MG TAB PO PRN ×2 (12:25→21:21)
[2021-07-17 00:42] VITALS: BP 111/65
[2021-07-17] MEDS: MORPHINE 4 MG SYG IV PRN (02:48)
[2021-07-17 03:56] VITALS: BP 122/82
[2021-07-17] MEDS: 0.9%NACL 1000ML 1,000 ML IV SCH (04:30)
[2021-07-17 07:05] VITALS: BP 111/52
[2021-07-17] MEDS ORDERED: CEFD300C3 PO (07:56)
[2021-07-17] MEDS: FAMOTIDINE 20MG VIAL IV SCH (09:00)
[2021-07-17] MEDS ORDERED: TAMS-1 PO (11:26)
[2021-07-17] MEDS ORDERED: CEPH500B PO (11:26)
[2021-07-17] MEDS ORDERED: TRAM50TA4 PO (11:26)
== END 2021-07-17 09:50 | disposition home or self-care (01) | DRG 446 ==
LOC: EDH 07:19 → EDHIP 12:24 → INTOOBSV 12:24 → OBSVTOIN 12:24 → 3BH 15:05
PROVIDERS: ADMIT Internal Medicine; ATTEND Internal Medicine
PROC: 0T778DZ Dilation of Left Ureter with Intraluminal Device, Via Natural or Artificial Opening Endoscopic (ICD-10-PCS; principal; 2021-07-16 08:30)
PROC: 0TC78ZZ Extirpation of Matter from Left Ureter, Via Natural or Artificial Opening Endoscopic (ICD-10-PCS; 2021-07-16 08:30)
DX: N13.2 Hydronephrosis with renal and ureteral calculous obstruction (principal); D72.829 Elevated white blood cell count, unspecified; E87.6 Hypokalemia; Z20.822 Contact with and (suspected) exposure to COVID-19; Z87.442 Personal history of urinary calculi; Z82.49 Family history of ischemic heart disease and other diseases of the circulatory system; Z82.5 Family history of asthma and other chronic lower respiratory diseases; Z83.3 Family history of diabetes mellitus; Z82.0 Family history of epilepsy and other diseases of the nervous system; Z82.3 Family history of stroke
CPT/HCPCS: 36415; 74018; 74176; 80053; 81001; 81025; 82360; 83735; 84100; 84145; 85025; 87088; 87635; C1758; C2617; G0378; J0330; J0696; J1100; J1885; J2001; J2250; J2270; J2405; J2704; J2710; J3010; J3490; J7030

== ENCOUNTER 2022-06-14 02:44 | Emergency (ER) | payer MEDICAID ==
[~2022-06-14] VITALS: Ht 157.5 cm; Wt 113.4 kg
[~2022-06-14 02:44] MED LIST changes: +CEPH500B PO; +TAMS-1 PO; +TRAM50TA4 PO
[2022-06-14] MEDS ORDERED: 0.9%NACL 1000ML 1,000 ML IV SCH (03:00)
[2022-06-14] MEDS ORDERED: KETOROLAC 30MG VIAL (30MG/ML) IVP ONE (03:00)
[2022-06-14] MEDS ORDERED: KETOROLAC 30MG VIAL (30MG/ML) ONE (03:02)
[2022-06-14 03:20] LABS: BASOPHILS % (AUTO) 0.3 % (0.0-5.0); EOSINOPHILS % (AUTO) 1.7 % (0.0-8.0); HEMATOCRIT 37.5 % (36-48); LYMPHOCYTES % (AUTO) 32.7 % (21.0-51.0); MEAN CORPUSCULAR HEMOGLOBIN 26.9 pg (27.0-33.0); MEAN CORPUSCULAR VOLUME 84.1 fL (79-99); MONOCYTES % (AUTO) 5.3 % (3.0-13.0); NEUTROPHILS % (AUTO) 59.5 % (40.0-77.0); PLATELET COUNT (AUTO) 310 K/uL (130-400); RED BLOOD CELL COUNT(AUTO) 4.46 MIL/uL (4.00-5.50); WHITE BLOOD COUNT (AUTO) 11.9 K/uL (4.8-10.8)
[2022-06-14 03:25] LABS: APPEARANCE,URINE TURBID (CLEAR); BILIRUBIN,URINE NEGATIVE (NEGATIVE); COLOR,URINE LIGHT-ORANGE (YELLOW); GLUCOSE, URINE (UA) NEGATIVE (NEGATIVE); KETONES,URINE NEGATIVE (NEGATIVE); LEUKOCYTE ESTERASE ,URINE 25 Leu/uL (NEGATIVE); NITRATE,URINE NEGATIVE (NEGATIVE); OCCULT BLOOD,URINE NEGATIVE (NEGATIVE); PROTEIN,URINE NEGATIVE (NEGATIVE); UROBILINOGEN,URINE 0.2 mg/dL (0.2-1.0)
[2022-06-14 03:30] LABS: CREATININE 0.8 mg/dL (0.5-1.5); POTASSIUM 3.4 mmol/L (3.5-5.1)
[2022-06-14] MEDS ORDERED: ONDANSETRON 4MG INJ IVP ONE (03:30)
[2022-06-14 03:32] LABS: ALBUMIN 3.2 g/dL (3.5-5.0); TOTAL PROTEIN, SERUM 6.9 g/dL (6.0-8.3)
[2022-06-14 03:36] LABS: HCG,QUALITATIVE URINE NEGATIVE (NEGATIVE)
[2022-06-14 03:40] LABS: BACTERIA,URINE RARE /HPF (None Seen); MUCUS,URINE RARE LPF (None Seen); OTHER CASTS, URINE 5 /LPF (None Seen); SQUAMOUS EPITHELIAL CELL,UR FEW /HPF (0-2); YEAST,URINE BUDDING MANY /HPF (None Seen)
[2022-06-14] MEDS ORDERED: MORPHINE 2 MG SYG IVP ONE (04:00)
[2022-06-14] MEDS ORDERED: PHARMACY COMMUNICATION MISC SCH (04:30)
[2022-06-14] MEDS ORDERED: LIDOCAINE HCL-MPF 2% 5ML VIAL ONE (04:32)
[2022-06-14] MEDS ORDERED: IBUP-2088 PO (05:46)
[2022-06-14] MEDS ORDERED: TAMS-1 PO (05:46)
[2022-06-14 05:55] VITALS: BP 116/70
== END 2022-06-14 06:12 | disposition home or self-care (01) ==
LOC: EDH 02:44
DX: N20.0 Calculus of kidney (principal); F17.200 Nicotine dependence, unspecified, uncomplicated; Z87.442 Personal history of urinary calculi; Z79.899 Other long term (current) drug therapy; Z98.890 Other specified postprocedural states
CPT/HCPCS: 99285; 74176; 96374; 96375 ×2; 80053; 85025; 87088; 81001; 81025; 36415; J2405; J1885; J3490

== ENCOUNTER 2023-03-07 01:31 | Observation (INO) | payer MEDICAID, OTHER ==
[~2023-03-07] VITALS: Ht 157.5 cm; Wt 109.8 kg
[~2023-03-07 01:31] MED LIST changes: +IBUP-2088 PO
[2023-03-07] MEDS ORDERED: TETANUS/DIPHTHERIA TOXOID [ADULT] 0.5 ML VIAL IM ONE (03:30)
[2023-03-07 03:42] LABS: BASOPHILS # (AUTO) 0.04 K/uL (0.00-0.20); BASOPHILS % (AUTO) 0.3 % (0.0-5.0); EOSINOPHILS # (AUTO) 0.23 K/uL (0.00-0.70); EOSINOPHILS % (AUTO) 1.7 % (0.0-8.0); HEMATOCRIT 36.5 % (36-48); IMMATURE GRANULOCYTE ABSOLUTE 0.09 K/uL (0-1); LYMPHOCYTES # (AUTO) 3.4 K/uL (1.0-4.8); LYMPHOCYTES % (AUTO) 25.5 % (21.0-51.0); MEAN CORPUSCULAR HEMOGLOBIN 26.8 pg (27.0-33.0); MEAN CORPUSCULAR HGB CONC 32.6 g/dL (32.0-36.0); MEAN CORPUSCULAR VOLUME 82.2 fL (79-99); MONOCYTES # (AUTO) 0.7 K/uL (0.1-1.0); MONOCYTES % (AUTO) 5.2 % (3.0-13.0); NEUTROPHILS # (AUTO) 8.9 K/uL (1.8-7.7); NEUTROPHILS % (AUTO) 66.6 % (40.0-77.0); PLATELET COUNT (AUTO) 317 K/uL (130-400); RED BLOOD CELL COUNT(AUTO) 4.44 MIL/uL (4.00-5.50); RED CELL DISTRIBUTION WIDTH 15.2 % (11.0-15.5); WHITE BLOOD COUNT (AUTO) 13.4 K/uL (4.8-10.8)
[2023-03-07 03:58] LABS: CREATININE 0.7 mg/dL (0.5-1.5); POTASSIUM 3.5 mmol/L (3.5-5.1)
[2023-03-07 04:03] LABS: ALBUMIN 3.2 g/dL (3.5-5.0); BILIRUBIN,TOTAL 0.2 mg/dL (0.2-1.0); TOTAL PROTEIN, SERUM 7.5 g/dL (6.0-8.3)
[2023-03-07] MEDS ORDERED: MORPHINE 4 MG SYG IVP ONE ×2 (04:30)
[2023-03-07] MEDS ORDERED: ONDANSETRON 4MG INJ IVP ONE (04:30)
[2023-03-07] MEDS ORDERED: UNASYN 3GM VIAL IV ONE (04:30)
[2023-03-07] MEDS ORDERED: AMP/SULBAC 3GM+NS 100ML 100 ML IV ONE (04:48)
[2023-03-07] MEDS ORDERED: ACETAMINOPHEN 325 MG TAB PO PRN ×2 (06:00)
[2023-03-07] MEDS ORDERED: AMP/SULBAC 1.5GM+NS 100ML 100 ML IV SCH (06:00)
[2023-03-07] MEDS ORDERED: ONDANSETRON 4MG INJ IV PRN (06:00)
[2023-03-07] MEDS ORDERED: KCL 20 MEQ ERTAB PO PRN (06:30)
[2023-03-07] MEDS ORDERED: POTASSIUM CHLORIDE 10% ELIXIR 20 MEQ/15 ML UDCUP PO PRN (06:30)
[2023-03-07] MEDS ORDERED: PHARMACY COMMUNICATION MISC SCH (06:30)
[2023-03-07] MEDS ORDERED: MAGNESIUM 2GM PREMIX 50ML 50 ML IV PRN (06:30)
[2023-03-07] MEDS ORDERED: POTASSIUM CHLORIDE 20MEQ/100ML 100 ML IV PRN (06:30)
[2023-03-07] MEDS: KETOROLAC 15MG/ML VIAL (15MG/ML) IV PRN ×3 (06:46→20:27)
[2023-03-07] MEDS ORDERED: AMP/SULBAC 1.5GM+NS 100ML 100 ML IV ONE (07:30)
[2023-03-07 13:26] VITALS: BP 104/63; PULSE 77; RESP 16
[2023-03-07] MEDS: SODIUM CHLORIDE IV SCH ×2 (15:38→20:46)
[2023-03-07] MEDS: SULBACTAM IV SCH ×2 (15:38→20:46)
[2023-03-07 15:52] VITALS: BP 132/70; PULSE 71; RESP 16
[2023-03-07 19:43] VITALS: BP 122/72; PULSE 88; RESP 18
[2023-03-07] MEDS: FAMOTIDINE 20MG TAB PO SCH (20:44)
[2023-03-07 23:36] VITALS: BP 110/66; PULSE 89; RESP 17
[2023-03-08] VITALS (9 sets, daily range): BP systolic 83–123; BP diastolic 44–85; PULSE 60–92; RESP 17–20; O2SAT 98–99
[2023-03-08] MEDS: SULBACTAM IV SCH ×5 (02:33→23:39)
[2023-03-08] MEDS: SODIUM CHLORIDE IV SCH ×5 (02:33→23:39)
[2023-03-08 06:26] LABS: BASOPHILS # (AUTO) 0.03 K/uL (0.00-0.20); BASOPHILS % (AUTO) 0.2 % (0.0-5.0); EOSINOPHILS # (AUTO) 0.18 K/uL (0.00-0.70); EOSINOPHILS % (AUTO) 1.1 % (0.0-8.0); HEMATOCRIT 35.3 % (36-48); LYMPHOCYTES # (AUTO) 3.3 K/uL (1.0-4.8); MEAN CORPUSCULAR HGB CONC 32.3 g/dL (32.0-36.0); MEAN CORPUSCULAR VOLUME 83.6 fL (79-99); MONOCYTES # (AUTO) 0.6 K/uL (0.1-1.0); MONOCYTES % (AUTO) 3.7 % (3.0-13.0); NEUTROPHILS # (AUTO) 12.2 K/uL (1.8-7.7); NEUTROPHILS % (AUTO) 74.4 % (40.0-77.0); PLATELET COUNT (AUTO) 297 K/uL (130-400); RED BLOOD CELL COUNT(AUTO) 4.22 MIL/uL (4.00-5.50); RED CELL DISTRIBUTION WIDTH 15.3 % (11.0-15.5); WHITE BLOOD COUNT (AUTO) 16.3 K/uL (4.8-10.8)
[2023-03-08 06:30] LABS: HEMOGLOBIN A1C 5.5 % (4.0-6.0)
[2023-03-08 06:39] LABS: ALBUMIN 2.7 g/dL (3.5-5.0); BILIRUBIN,TOTAL 0.5 mg/dL (0.2-1.0); CREATININE 0.7 mg/dL (0.5-1.5); MAGNESIUM 1.8 mg/dL (1.80-2.40); POTASSIUM 3.7 mmol/L (3.5-5.1); TOTAL PROTEIN, SERUM 6.6 g/dL (6.0-8.3)
[2023-03-08 06:45] LABS: INR < 0.93 (0.85-1.15); PROTHROMBIN TIME 10.4 SEC (9.6-11.6)
[2023-03-08 06:47] LABS: PARTIAL THROMBOPLASTIN TIME 26.2 SEC (26.3-35.5)
[2023-03-08] MEDS: KETOROLAC 15MG/ML VIAL (15MG/ML) IV PRN (06:54)
[2023-03-08] MEDS: FAMOTIDINE 20MG TAB PO SCH ×2 (08:16→21:27)
[2023-03-08] MEDS ORDERED: ATOR40TA71 PO (10:38)
[2023-03-08] MEDS ORDERED: SEMA1PEN3 SQ (10:38)
[2023-03-08] MEDS ORDERED: LISI5TAB21 PO (10:38)
[2023-03-08] MEDS ORDERED: ALEN70TA80 PO (10:38)
[2023-03-08] MEDS ORDERED: GADOTERATE MEGLUMINE 10 MMOL/20 ML VIAL IV ONE (15:33)
[2023-03-08] MEDS ORDERED: LORAZEPAM 2 MG/ML 1 ML VIAL IM STA (16:33)
[2023-03-09] MEDS ORDERED: LORAZEPAM 2 MG/ML 1 ML VIAL IVP ONE (02:30)
[2023-03-09 03:00] VITALS: BP 113/76; PULSE 85; RESP 20
[2023-03-09] MEDS: SULBACTAM IV SCH ×2 (06:01→13:01)
[2023-03-09] MEDS: SODIUM CHLORIDE IV SCH ×2 (06:01→13:01)
[2023-03-09 07:02] LABS: HEMATOCRIT 32.7 % (36-48); MEAN CORPUSCULAR HEMOGLOBIN 26.8 pg (27.0-33.0); MEAN CORPUSCULAR HGB CONC 32.7 g/dL (32.0-36.0); MEAN CORPUSCULAR VOLUME 81.8 fL (79-99); RED CELL DISTRIBUTION WIDTH 15.3 % (11.0-15.5); WHITE BLOOD COUNT (AUTO) 11.4 K/uL (4.8-10.8)
[2023-03-09 07:15] LABS: CREATININE 0.6 mg/dL (0.5-1.5); POTASSIUM 3.9 mmol/L (3.5-5.1)
[2023-03-09 07:38] VITALS: BP 103/64; PULSE 80; RESP 18
[2023-03-09 07:45] VITALS: O2SAT 98
[2023-03-09] MEDS: FAMOTIDINE 20MG TAB PO SCH (09:16)
[2023-03-09 11:53] VITALS: BP 106/71; PULSE 87; RESP 18
[2023-03-09] MEDS ORDERED: [UNRECOGNIZED DRUG - OTHER] PO (14:21)
== END 2023-03-09 14:40 | disposition home or self-care (01) ==
LOC: EDH 01:31 → EDHIP 05:56 → WSH 12:30
PROVIDERS: ADMIT Hospitalist; ATTEND Hospitalist
DX: A41.9 Sepsis, unspecified organism (principal); S61.451A Open bite of right hand, initial encounter; L03.113 Cellulitis of right upper limb; L02.511 Cutaneous abscess of right hand; E66.01 Morbid (severe) obesity due to excess calories; L08.9 Local infection of the skin and subcutaneous tissue, unspecified; D72.829 Elevated white blood cell count, unspecified; Z87.442 Personal history of urinary calculi; Z68.41 Body mass index [BMI] 40.0-44.9, adult; Z79.899 Other long term (current) drug therapy; W55.01XA Bitten by cat, initial encounter; Y93.89 Activity, other specified; Y92.89 Other specified places as the place of occurrence of the external cause; Y99.8 Other external cause status
CPT/HCPCS: 96376 ×2; 96365; 96366 ×3; 96375 ×2; 99284; 80053 ×2; 84703; 85025 ×2; 87040 ×2; 87070; 83605; 86611 ×4; 86140; 36415 ×3; 90714; 73130; 90471; 96372; 83036; 83735 ×2; 85610; 85730; 73220; 84145; 80048; 85027; G0378 ×57; J2405; J2270; J0295 ×10; J1885 ×4; J2060 ×2; A9575; J7030 ×2